=== PATIENT | male | born 1955 | race Caucasian/White ===

== ENCOUNTER 2019-02-17 12:25 | Outpatient (CLI) | payer MEDICARE ==
--- NOTE | 2019-02-17 13:02 | CT ---
CT BRAIN WITHOUT CONTRAST: HISTORY: Fall. Abrasion. Abnormal blood pressure and nausea. COMPARISON: None. FINDINGS: Mild chronic microvascular ischemic changes. No midline shift or mass effect. No acute territorial infarct or hemorrhage. Calvarium is intact. The paranasal sinuses and mastoids are clear. IMPRESSION: Chronic findings. No acute intracranial abnormality. POS: [place]
== END 2019-02-17 12:26 | disposition home or self-care (01) ==
LOC: BICCT 12:25 → CT 12:26
PROVIDERS: ATTEND Internal Medicine Cardiovascular Disease
DX: S09.90XA Unspecified injury of head, initial encounter (principal)
CPT/HCPCS: 70450